=== PATIENT | female | born 1935 | race Caucasian/White ===

== ENCOUNTER 2017-11-13 11:16 | Day surgery (SDC) | payer MEDICARE, BC ==
[~2017-11-13] VITALS: Ht 170.2 cm; Wt 59.1 kg
[~2017-11-13 11:16] MED LIST: ALBU8.5H8 INH; AMIT10TA6 PO; AMLO5TAB4 PO; CALC-1051 PO; CHOL10008 PO; FLUT1DIS4 INH; FURO-150 PO; LOSA50TA21 PO; MONT10TA24 PO; NAPR375T5 PO
[2017-11-13 11:25] VITALS: BP 165/97
[2017-11-13] MEDS ORDERED: PANT-47 PO (11:42)
[2017-11-13] MEDS ORDERED: IRON1TAB93 PO (11:42)
[2017-11-13] MEDS ORDERED: MIDAZolam 5mg/5ml vial ONE (12:18)
[2017-11-13] MEDS ORDERED: fentaNYL/PF 50MCG/1 ML 2ML syringe ONE (12:18)
[2017-11-13] MEDS ORDERED: LIDOcaine Viscous 15ml cup ONE (12:19)
[2017-11-13 12:57] VITALS: BP 139/79
[2017-11-13 13:07] VITALS: BP 134/71
[2017-11-13 13:17] VITALS: BP 148/70
[2017-11-13 13:27] VITALS: BP 150/78
== END 2017-11-13 13:40 | disposition home or self-care (01) ==
LOC: GI LAB 11:16
PROVIDERS: ATTEND Internal Medicine Gastroenterology
DX: K92.1 Melena (principal); K31.89 Other diseases of stomach and duodenum; I10 Essential (primary) hypertension; M19.90 Unspecified osteoarthritis, unspecified site; Z95.0 Presence of cardiac pacemaker; Z90.10 Acquired absence of unspecified breast and nipple; Z87.09 Personal history of other diseases of the respiratory system; Z72.89 Other problems related to lifestyle; Z79.899 Other long term (current) drug therapy; Z98.890 Other specified postprocedural states
CPT/HCPCS: 43235; G0500; J2250; J3010; J7030; A4620

== ENCOUNTER 2020-01-21 13:51 | Emergency (ER) | payer MEDICARE, BC ==
[~2020-01-21] VITALS: Ht 170.2 cm; Wt 61.4 kg
[~2020-01-21 13:51] MED LIST changes: -AMIT10TA6 PO; +IRON1TAB93 PO; -LOSA50TA21 PO; +LOSA50TA64 PO; -MONT10TA24 PO; +MONT10TA26 PO; -NAPR375T5 PO; +PANT-47 PO
[2020-01-21 14:07] VITALS: BP 111/81
== END 2020-01-21 15:25 | disposition home or self-care (01) ==
LOC: ER 13:51
DX: G57.01 Lesion of sciatic nerve, right lower limb (principal); W18.39XA Other fall on same level, initial encounter; Y93.89 Activity, other specified; Y92.89 Other specified places as the place of occurrence of the external cause; Y99.8 Other external cause status
CPT/HCPCS: 72100; 73502; 99284